=== PATIENT | male | born 1960 | race Hispanic/Latino ===

== ENCOUNTER 2018-09-29 07:56 | Emergency (ER) | payer BC, OTHER ==
[2018-09-29] MEDS ORDERED: KETOROLAC TROMETHAMINE 60 MG/2 ML VIAL ONE (09:03)
[2018-09-29] MEDS ORDERED: PREDNISONE 20 MG TABLET ONE (09:25)
== END 2018-09-29 10:07 | disposition home or self-care (01) ==
LOC: EDH 07:56
DX: M54.31 Sciatica, right side (principal)
CPT/HCPCS: 96372; 99283; J1885

== ENCOUNTER → 2022-05-13 | Outpatient (CLI) | payer OTHER | END | disposition home or self-care (01) | LOC: RAH 12:18 | PROVIDERS: ATTEND Internal Medicine Cardiovascular Disease | DX: Z13.6 Encounter for screening for cardiovascular disorders (principal) | CPT/HCPCS: 75571 ==

== ENCOUNTER 2025-05-26 08:14 | Emergency (ER) | payer BC, OTHER ==
[~2025-05-26] VITALS: Ht 165.1 cm; Wt 88.5 kg
--- NOTE | 2025-05-26 08:24 | NUR ---
PATIENT IN ROOM
--- NOTE | 2025-05-26 08:40 | ERN ---
General Chief Complaint: Abdominal Pain Stated Complaint: ABDOMINAL PAIN Time Seen by MD: 08:21 History of Present Illness Initial Comments The patient is a 65-year-old male who came to the ER with complaint of for left upper back pain radiating to the left lower quadrant. As per the patient, the pain associated with burning sensations and is sensitive to touch even with his shirt or sheets. Timing/Duration: 1 week Severity: moderate Allergies: Coded Allergies: No Known Drug Allergies (Unverified Allergy, Unknown, 05/26/25) Home Meds Active Scripts Prednisone (Prednisone) 20 Mg Tablet, 1 TAB PO BID for 7 Days, #14 TAB 0 Refills Prov:EJ CHEEK MD 05/26/25 Valacyclovir HCl (Valacyclovir) 1,000 Mg Tablet, 1 TAB PO TID for 7 Days, #21 TAB 0 Refills Prov:EJ CHEEK MD 05/26/25 Past Medical History Past Medical History: High Cholesterol Past Surgical History: Other Surgical History Other: BACK SX Gastrointestinal/Abdominal: (+) abdominal pain Musculoskeletal: (+) back pain, (+) Flank Pain Physical Exam General Appearance: (+) no apparent distress Orientation: (+) alert, (+) oriented x 3 Head/Face Trauma: No Ear, Nose, Throat: (+) hearing grossly normal Neck: (+) normal inspection Respiratory: (+) chest non-tender, (+) lungs clear Heart: (+) regular, (+) no gallop Gastrointestinal Comment Left lower quadrant sensitive to touch Back Comment Left lower back pain Results Laboratory and Microbiology Lab and Micro Result Laboratory Tests Test 05/26/25 08:44 05/26/25 09:24 White Blood Count 7.8 K/uL (4.8-10.8) Red Blood Count 5.22 MIL/uL (4.50-6.20) Hemoglobin 16.2 g/dL (14.0-18.0) Hematocrit 47.5 % (42-54) Mean Corpuscular Volume 91.0 fL (79-99) Mean Corpuscular Hemoglobin 31.0 pg (27.0-33.0) Mean Corpuscular Hemoglobin Concent 34.1 g/dL (32.0-36.0) Red Cell Distribution Width 12.4 % (11.0-15.5) Platelet Count 263 K/uL (130-400) Mean Platelet Volume 10.1 fL (7.5-10.5) Nucleated Red Blood Cells 0.0 % (0.0-0.19) Sodium Level 134 mmol/L (136-145) L Potassium Level 4.1 mmol/L (3.5-5.1) Chloride Level 103 mmol/L (101-111) Carbon Dioxide Level 25 mmol/L (21-32) Blood Urea Nitrogen 13 mg/dL (7-18) Creatinine 1.0 mg/dL (0.5-1.3) Glomerular Filtration Rate Calc 84 mL/min (>90) Random Glucose 106 mg/dL (70-105) H Total Calcium 8.5 mg/dL (8.5-10.1) Urine Color LIGHT-YELLOW (YELLOW) Urine Appearance CLEAR (CLEAR) Urine pH 6.0 (5.0-8.0) Urine Specific [place] 1.015 (1.001-1.031) Urine Protein NEGATIVE mg/dL (NEGATIVE) Urine Glucose (UA) NEGATIVE mg/dL (NEGATIVE) Urine Ketones NEGATIVE mg/dL (NEGATIVE) Urine Occult Blood NEGATIVE (NEGATIVE) Urine Nitrate NEGATIVE (NEGATIVE) Urine Bilirubin NEGATIVE mg/dL (NEGATIVE) Urine Urobilinogen 0.2 mg/dL (0.2-1.0) Urine Leukocyte Esterase NEGATIVE Marta/uL MDM MDM: Differential diagnosis: Shingles, kidney stone The patient was seen and examined in the ER. CBC, BMP and urinalysis unremarkable The patient was given Toradol [address] scan of the abdomen pelvis was unremarkable. As per his history and with the examination it looks most likely shingles but the patient does not have vesicles right now and there is no definite test to diagnose shingles. The patient will be discharged with the acyclovir steroids for the disease. The patient was further informed that if he develops fever, diarrhea, stomach pain, chills then he should come to the ER. ED Course Orders Procedure Category Date Status Time Cbc Without LAB 05/26/25 Complete Differential 08:35 Basic Metabolic Panel LAB 05/26/25 Complete 08:35 Urinalysis Profile LAB 05/26/25 Complete 08:35 Ct Abdomen/Pelvis W/O CT 05/26/25 Resulted Contrast 08:35 Morphine 4mg Syg PHA 05/26/25 Complete (Morphine 4mg Syg) 09:30 Ketorolac PHA 05/26/25 Complete Tromethamine 15mg/Ml 10:00 Current Medications Medications (Trade) Dose Ordered Sig/Marina Route PRN Reason Start Time Stop Time Status Last Admin Dose Admin Ketorolac Tromethamine (toRADol) 15 mg ONCE ONCE IM 05/26/25 10:00 05/26/25 10:01 DC 05/26/25 10:01 Morphine Sulfate (morPHINE 4MG SYG) 4 mg ONCE ONCE IVP 05/26/25 09:30 05/26/25 09:31 DC Vital Signs Date Time Temp Pulse Resp B/P (MAP) Pulse Ox O2 Delivery O2 Flow Rate FiO2 05/26/25 09:24 63 14 140/78 100 Room Air* 0 21 05/26/25 08:25 97.7 67 20 161/90 99 Room Air* 0 21 05/26/25 08:15 97.7 67 20 161/90 99 DX & DISP Disposition: Discharge Departure Impression: Primary Impression: Shingles Condition: Stable Scripts Prednisone (Prednisone) 20 Mg Tablet 1 TAB PO BID for 7 Days, #14 TAB 0 Refills Prov: EJ CHEEK MD 05/26/25 Valacyclovir HCl (Valacyclovir) 1,000 Mg Tablet 1 TAB PO TID for 7 Days, #21 TAB 0 Refills Prov: EJ CHEEK MD 05/26/25 Additional Instructions: *Follow up with your primary care physician in 2 - 3 days after discharge. *Continue all medications as prescribed. Do not discontinue or change dosages without consulting your PCP. *Gradually resume normal activities as tolerated. *Continue a balanced diet . Reduce salt intake to help manage BP. *Seek immediate medical attention if you experience chest pain, SOB or severe headache. increase in symptoms Referrals: WINDY WEINSTEIN MD (PCP) I performed a substantive portion of the visit. I have reviewed and personally made and approve the management plan that is documented in the notes by myself with OLEG/resident. I acknowledged full responsibility for the patient's management plan. EJ CHEEK MD May 26, 2025 08:40 UNIQUE MUJICA DO May 26, 2025 10:32
[2025-05-26 08:57] LABS: NUCLEATED RED BLOOD CELLS 0.0 % (0.0-0.19); PLATELET COUNT (AUTO) 263.0 K/uL (130-400); RED BLOOD CELL COUNT(AUTO) 5.22 MIL/uL (4.50-6.20); RED CELL DISTRIBUTION WIDTH 12.4 % (11.0-15.5); WHITE BLOOD COUNT (AUTO) 7.8 K/uL (4.8-10.8)
[2025-05-26 09:19] LABS: CREATININE 1.0 mg/dL (0.5-1.3); GLOMERULAR FILTR. RATE CALC 84.0 mL/min (>90); GLUCOSE,RANDOM 106.0 mg/dL (70-105); SODIUM SERUM 134.0 mmol/L (136-145); UREA NITROGEN, BLOOD 13.0 mg/dL (7-18)
[2025-05-26 09:38] LABS: APPEARANCE,URINE CLEAR (CLEAR); GLUCOSE, URINE (UA) NEGATIVE (NEGATIVE); LEUKOCYTE ESTERASE ,URINE NEGATIVE Leu/uL (NEGATIVE); NITRATE,URINE NEGATIVE (NEGATIVE); OCCULT BLOOD,URINE NEGATIVE (NEGATIVE)
[2025-05-26 09:44] LABS: ADD UA MICROSCOPIC NO
--- NOTE | 2025-05-26 09:55 | HMCIMG ---
EXAMINATION: CT Abdomen and Pelvis without intravenous contrast. CLINICAL HISTORY: Patient presents with abdominal pain. TECHNIQUE: Axial CT of the abdomen and pelvis without intravenous contrast. Multiplanar reformations were generated and reviewed. CONTRAST: No intravenous contrast. COMPARISON: None provided. FINDINGS: LUNG BASES: The visualized lung bases are unremarkable. LIVER: Unremarkable in size and density. No focal hepatic lesion. SPLEEN: Unremarkable in size and density. GALLBLADDER AND BILE DUCTS: Unremarkable with no radioopaque gallstones or wall thickening. No biliary ductal dilatation. PANCREAS: Unremarkable in appearance. No calcifications. ADRENAL GLANDS: The left adrenal gland is unremarkable. A small calcific focus measures 0.5 x 0.1 cm in the body and medial limb of the right adrenal gland. KIDNEYS, URETERS, AND BLADDER: Normal size and position. No hydronephrosis or radio-opaque calculi. The ureters and bladder are unremarkable. Subtle perinephric fat stranding around the lower pole cortex of the right kidney STOMACH AND BOWEL: Fecal loaded colon. Unremarkable appearance otherwise. No bowel wall thickening or obstruction. Probable trans mesocolon herniation of the jejunal bowel loops with no obstruction. APPENDIX: No CT features of acute appendicitis. PERITONEUM: No free fluid or free air. REPRODUCTIVE: The prostate measures 3.4 x 4.3 x 3.9 cm with a calculated volume of 30.5 cm. VASCULATURE: Minimal atheromatous calcification of the abdominal aorta. LYMPH NODES: No retroperitoneal or pelvic lymphadenopathy. BONES: No acute abnormality. Spondylotic changes in the visualized spine with reduced disc space at L4-L5. Grade I anterolisthesis of L4 over L5 vertebrae with underlying pars defect. OTHER: Minimal hiatus hernia. IMPRESSION: No acute intra-abdominal or pelvic abnormality. Mildly enlarged prostate Small calcific focus in the right adrenal gland. Minimal hiatus hernia. Fecal loaded colon, concerning constipation. Grade I anterolisthesis of L4 over L5 vertebrae with underlying pars defect and moderate spondylotic changes. /Cass
[2025-05-26] MEDS ORDERED: VALA100031 PO (10:24)
[2025-05-26] MEDS ORDERED: PRED20TA3 PO (10:24)
[2025-05-26 10:34] VITALS: BP 127/75; PULSE 61; RESP 14; TEMP 97.7; O2SAT 97
== END 2025-05-26 10:35 | disposition home or self-care (01) ==
LOC: EDH 08:14
DX: B02.9 Zoster without complications (principal); M54.6 Pain in thoracic spine; E78.00 Pure hypercholesterolemia, unspecified; Z79.52 Long term (current) use of systemic steroids
CPT/HCPCS: 99284; 74176; 80048; 85027; 81003; 36415; 96372; J1885